=== PATIENT | male | born 1995 | race Caucasian/White ===

== ENCOUNTER 2022-01-11 16:15 | Inpatient (IN) | payer OTHER, SELFPAY ==
[2022-01-11 16:21] VITALS: BP 134/76; PULSE 90; RESP 20; TEMP 36.8; O2SAT 99; BMI 24.6
--- NOTE | 2022-01-11 16:46 | ED_ITS ---
HPI - General Adult General Chief complaint: Psychiatric Symptoms <DIANELYS Sales Last Filed: 01/11/22 17:49> Stated complaint: Crisis <DIANELYS Sales Last Filed: 01/11/22 17:49> Time Seen by Provider: 01/11/22 16:46 <DIANELYS Sales Last Filed: 01/11/22 17:49> Source: patient <DIANELYS Sales Last Filed: 01/11/22 17:49> Mode of arrival: ambulatory <DIANELYS Sales Last Filed: 01/11/22 17:49> Limitations: no limitations <DIANELYS Sales Last Filed: 01/11/22 17:49> History of Present Illness HPI narrative: Patient is a 26 year old male presenting to the emergency department today with thoughts of self harm and increased anxiety. Patient states that he just had a fight with a friend that is very important to him and that is amplifying his other life stresses. Patient states that he does not have plans to hurt himself but the thoughts cross his mind often. Patient denies any dizziness, lightheade dness, abdominal pain, nausea, vomiting, fever, chills, blurry vision, double vision, loss of vision, chest pain, difficulty breathing, shortness of breath, back pain, night sweats, pain with urination, increased urinary frequency, increased urinary urgency, blood in his urine or stool, syncope or a near syncopal episode, recent trauma or falls, bowel incontinence, bladder incontinence, bowel retention, bladder retention, or any other complaints at this time. <DIANELYS Sales Last Filed: 01/11/22 17:49> Onset (ago): day(s) <DIANELYS Sales Last Filed: 01/11/22 17:49> Severity: mild <DIANELYS Sales Last Filed: 01/11/22 17:49> Severity scale (1-10): 2 <DIANELYS Sales Last Filed: 01/11/22 17:49> Relieving factors: none <DIANELYS Sales Last Filed: 01/11/22 17:49> Exacerbating factors: none <DIANELYS Sales Last Filed: 01/11/22 17:49> Associated symptoms: denies other symptoms <DIANELYS Sales Last Filed: 01/11/22 17:49> Treatments prior to arrival: none <DIANELYS Sales Last Filed: 01/11/22 17:49> Related Data Home medications: Home Medications Medication Instructions Recorded Confirmed No Known Home Meds 01/11/22 01/11/22 <DIANELYS Sales Last Filed: 01/11/22 17:49> Allergies/adverse reactions: Allergies Allergy/AdvReac Type Severity Reaction Status Date / Time amoxicillin Allergy Unknown rash Verified 01/12/18 00:00 Motrin Allergy Unknown unsure Uncoded 01/12/18 00:00 <DIANELYS Sales Last Filed: 01/11/22 17:49> Review of Systems Constitutional: Constitutional: Reports no additional constitutional complaints, Denies chills, Denies fever(s) and Denies night sweats <DIANELYS Sales Last Filed: 01/11/22 17:49> Eyes: Eyes: Reports no additional eye complaints, Denies blurry vision, Denies change in vision, Denies diplopia, Denies eye discharge, Denies loss of vision and Denies eye pain <DIANELYS Sales Last Filed: 01/11/22 17:49> ENT: Denies dizziness <DIANELYS Sales Last Filed: 01/11/22 17:49> Cardiovascular: Cardiovascular: Reports no additional cardiovascular complaints, Denies chest pain, Denies lightheadedness, Denies Loss of Consciousness and Denies dyspnea <DIANELYS Sales Last Filed: 01/11/22 17:49> Respiratory: Respiratory: Reports no additional respiratory complaints and Denies dyspnea <DIANELYS Sales Last Filed: 01/11/22 17:49> Gastrointestinal: Gastrointestinal: Reports no additional gastrointestinal complaints, Denies abdominal pain, Denies melena, Denies hematochezia, Denies change in bowel habits and Denies change in stool character <DIANELYS Sales Last Filed: 01/11/22 17:49> Genitourinary: Genitourinary: Reports no additional male genitourinary complaints, Denies hematuria, Denies oliguria, Denies difficulty urinating, Denies dysuria, Denies urinary frequency, Denies urinary hesitancy, Denies urinary incontinence and Denies urinary urgency <DIANELYS Sales - Last Filed: 01/11/22 17:49> Musculoskeletal: Musculoskeletal: Reports no additional musculoskeletal complaints, Denies numbness and Denies tingling <DIANELYS Sales - Last Filed: 01/11/22 17:49> Neurologic: Denies dizziness, Denies loss of vision, Denies numbness and Denies tingling <DIANELYS Sales - Last Filed: 01/11/22 17:49> Psychiatric: Psychiatric: Reports no additional psychiatric complaints, Reports anxiety, Reports depression, Denies homicidal ideation and Denies suicidal ideation <DIANELYS Sales - Last Filed: 01/11/22 17:49> Endocrine: Endocrine: Reports no additional endocrine complaints <DIANELYS Sales - Last Filed: 01/11/22 17:49> Hematologic/Lymphatic: Hematologic/Lymphatic: Reports no additional hematologic/lymphatic complaints <DIANELYS Sales - Last Filed: 01/11/22 17:49> Allergic/Immunologic: Allergic/Immunologic: Reports no additional allergic/immunologic complaints <DIANELYS Sales - Last Filed: 01/11/22 17:49> [facility] Past Medical History Attestation statement: The following information was validated with the patient. <DIANELYS Sales - Last Filed: 01/11/22 17:49> Source: old records reviewed <DIANELYS Sales - Last Filed: 01/11/22 17:49> Social History Social History: Social History Advance Directives: No Advance Directives Information Provided: No Guardian: No <DIANELYS Sales - Last Filed: 01/11/22 17:49> Physical Exam ED Vital Signs: Vital Signs - 24 hr 01/11/22 16:21 01/12/22 04:13 01/12/22 08:08 Temperature 98.2 F 98.3 F 97.1 F Pulse Rate 90 87 66 Respiratory Rate 20 17 14 Blood Pressure 134/76 130/73 130/90 H Pulse Oximetry 99 99 100 BMI result Body Mass Index 24.6 <DIANELYS Sales - Last Filed: 01/11/22 17:49> Vital Signs - 24 hr 01/11/22 16:21 01/12/22 04:13 01/12/22 08:08 Temperature 98.2 F 98.3 F 97.1 F Pulse Rate 90 87 66 Respiratory Rate 20 17 14 Blood Pressure 134/76 130/73 130/90 H Pulse Oximetry 99 99 100 BMI result Body Mass Index 24.6 <DIANELYS Blair - Last Filed: 01/12/22 09:17> Const General: cooperative, no acute distress, alert and awake <DIANELYS Sales - Last Filed: 01/11/22 17:49> Nutritional Appearance: well nourished <DIANELYS Sales - Last Filed: 01/11/22 17:49> Orientation/consciousness: patient oriented x3 <DIANELYS Sales - Last Filed: 01/11/22 17:49> Limitations: no limitations <DIANELYS Sales - Last Filed: 01/11/22 17:49> HENMI Head: Yes normal to inspection and Yes atraumatic <DIANELYS Sales - Last Filed: 01/11/22 17:49> Ears: hearing grossly normal bilaterally and external ears normal <DIANELYS Sales - Last Filed: 01/11/22 17:49> General nose exam: Normal external nose present, no nasal discharge noted and no epistaxis <DIANELYS Sales - Last Filed: 01/11/22 17:49> Face and sinus: Yes normal facial exam, No abrasion and No laceration <DIANELYS Sales - Last Filed: 01/11/22 17:49> Mouth: Normal oral and palatal mucosa present, no drooling and no muffled voice <DIANELYS Sales - Last Filed: 01/11/22 17:49> Eyes General: appearance normal, both eyes and all related structures <DIANELYS Sales - Last Filed: 01/11/22 17:49> Periorbital: periorbital findings normal <DIANELYS Sales - Last Filed: 01/11/22 17:49> Eyelids: Yes eyelids normal <DIANELYS Sales - Last Filed: 01/11/22 17:49> Conjunctivae: conjunctivae normal <Sun Gonzales PA - Last Filed: 01/11/22 17:49> Pupils: Equal, round and reactive pupils present <Sun Gonzales PA - Last Filed: 01/11/22 17:49> EOM: EOMs intact bilaterally <Sun Gonzales PA - Last Filed: 01/11/22 17:49> Neck Neck: Yes normal visual inspection, Yes full ROM and Yes no lymphadenopathy <Sun Gonzales PA - Last Filed: 01/11/22 17:49> Chest Chest palpation & inspection: normal inspection of the chest <Sun Gonzales PA - Last Filed: 01/11/22 17:49> Resp Effort & Inspection: normal respiratory effort and able to speak in complete sentences <Sun Gonzales PA - Last Filed: 01/11/22 17:49> Auscultation: clear to auscultation bilaterally <Sun Gonzales PA - Last Filed: 01/11/22 17:49> Cardio Rate: regular rate <Sun Gonzales PA - Last Filed: 01/11/22 17:49> Rhythm: regular rhythm <Sun Gonzales PA - Last Filed: 01/11/22 17:49> GI Inspection: Yes normal to inspection <Sun Gonzales PA - Last Filed: 01/11/22 17:49> Neuro General: patient oriented x3 and moves all extremities <Sun Gonzales PA - Last Filed: 01/11/22 17:49> Cranial nerves: Yes Equal, round and reactive pupils present <Sun Gonzales PA - Last Filed: 01/11/22 17:49> Cognition (Neuro): normal cognition <Sun Gonzales PA - Last Filed: 01/11/22 17:49> Motor exam (neuro): 5/5 motor strength present throughout <Sun Gonzales PA - Last Filed: 01/11/22 17:49> Sensory Exam: Normal double simultaneous stimulation for sensation <Sun Gonzales PA - Last Filed: 01/11/22 17:49> Coordination: [id number] test normal <Sun Gonzales PA - Last Filed: 01/11/22 17:49> Extrem General: Yes normal to inspection, Yes full ROM and Yes capillary refill normal < DIANELYS Sales - Last Filed: 01/11/22 17:49> Psych Appearance: grossly normal <DIANELYS Sales - Last Filed: 01/11/22 17:49> Mental Status: mental status grossly normal <DIANELYS Sales - Last Filed: 01/11/22 17:49> Affect: Anxious affect present <DIANELYS Sales - Last Filed: 01/11/22 17:49> Attitude: cooperative <DIANELYS Sales - Last Filed: 01/11/22 17:49> Thought process: Normal thought process present <DIANELYS Sales Last Filed: 01/11/22 17:49> Thought content: Depressive thoughts present <DIANELYS Sales Last Filed: 01/11/22 17:49> Insight: Good insight present (Psych) <DIANELYS Sales - Last Filed: 01/11/22 17:49> Course Course Course Narrative: Addendum: 01/12/22 0916--physician observation continued. Vital signs stab le, no complaints overnight patient currently watching TV, respirations unlabored, remains Section 12 inpatient bed search <DIANELYS Blair - Last Filed: 01/12/22 09:17> Medical Decision Making MDM Narrative Medical decision making narrative: Patient is a 26 year old male presenting to the emergency department today with increased anxiety. Patient's physical exam was unremarkable. Patient's urine tox screen is pending. Patient is still awaiting crisis evaluation. <DIANELYS Sales - Last Filed: 01/11/22 17:49> Differential Diagnosis Differential Diagnosis: anxiety, depression, crisis <DIANELYS Sales - Last Filed: 01/11/22 17:49> Medical Records Medical records reviewed: Yes I reviewed the patient's medical records. <DIANELYS Sales Last Filed: 01/11/22 17:49> Lab Data Lab results reviewed: Yes I reviewed the patient's lab results. <DIANELYS Sales Last Filed: 01/11/22 17:49> Result diagrams: : 01/11/22 19:58 01/11/22 19:58 <DIANELYS Sales - Last Filed: 01/11/22 17:49> Labs: Lab Results 01/11/22 01/11/22 01/11/22 Range/Units 16:58 18:16 19:58 WBC 7.8 (4.8-10.8) X10*3/uL RBC 5.39 (4.60-5.80) X10*6/uL Hgb 15.1 (14.0-18.0) g/dl Hct 45.8 (42.0-52.0) % MCV 85.0 (80.0-98.0) fL MCH 28.0 (27.0-33.0) pg MCHC 33.0 (31.0-36.0) g/dl RDW 12.7 (11.0-16.0) % Plt Count 173 (160-400) X10*3/uL MPV 10.6 (9.4-12.4) fL Immature Gran % (Auto) 0.3 (0.0-0.4) % Neut % (Auto) 64.3 (45-73) % Lymph % (Auto) 28.0 (20-40) % [place] % (Auto) 5.5 (2-11) % Eos % (Auto) 1.5 (0-4) % Baso % (Auto) 0.4 (0-2) % Lymph # (Auto) 2.2 (1.2-4.9) X10*3/uL [place] # (Auto) 0.4 (0.1-1.2) X10*3/uL Eos # (Auto) 0.1 (0.0-0.4) X10*3/uL Baso # (Auto) 0.0 (0.0-0.2) X10*3/uL Abs Immat Gran (auto) 0.02 (0.00-0.03) X10*3/uL Absolute Neuts (auto) 5.0 (2.0-8.3) x10*3/uL Absolute Nucleated RBC 0.000 (0.0-0.012) X10*3/uL Nucleated RBC % (auto) 0.0 (0.0-0.2) /100WBC Sodium (135-145) mmol/L Potassium (3.3-5.1) mmol/L Chloride (96-108) mmol/L Carbon Dioxide (22-29) mmol/L Anion Gap (12-20) BUN (9-16) mg/dL Creatinine (0.5-1.4) mg/dL Estim Creat Clear Calc Estimated GFR Random Glucose (60-115) mg/dL Calcium (8.4-10.2) mg/dL Salicylates (15-30) mg/dL Urine Opiates Screen Not Detected (Not Detect) Urine Fentanyl Screen Not Detected (Not Detect) Acetaminophen (<30) mcg/mL Ur Barbiturates Screen Not Detected (Not Detect) Ur Phencyclidine Scrn Not Detected (Not Detect) Ur Amphetamines Screen Not Detected (Not Detect) U Benzodiazepines Scrn Not Detected (Not Detect) Urine Cocaine Screen Not Detected (Not Detect) U Marijuana (THC) Screen Not Detected (Not Detect) Ethyl Alcohol mg/dL COVID-19 ([facility]) Negative (Negative) COVID-19 Clin Com See Note 01/11/22 01/11/22 Range/Units 19:58 19:58 WBC (4.8-10.8) X10*3/uL RBC (4.60-5.80) X10*6/uL Hgb (14.0-18.0) g/dl Hct (42.0-52.0) % MCV (80.0-98.0) fL MCH (27.0-33.0) pg MCHC (31.0-36.0) g/dl RDW (11.0-16.0) % Plt Count (160-400) X10*3/uL MPV (9.4-12.4) fL Immature Gran % (Auto) (0.0-0.4) % Neut % (Auto) (45-73) % Lymph % (Auto) (20-40) % [place] % (Auto) (2-11) % Eos % (Auto) (0-4) % Baso % (Auto) (0-2) % Lymph # (Auto) (1.2-4.9) X10*3/uL [place] # (Auto) (0.1-1.2) X10*3/uL Eos # (Auto) (0.0-0.4) X10*3/uL Baso # (Auto) (0.0-0.2) X10*3/uL Abs Immat Gran (auto) (0.00-0.03) X10*3/uL Absolute Neuts (auto) (2.0-8.3) x10*3/uL Absolute Nucleated RBC (0.0-0.012) X10*3/uL Nucleated RBC % (auto) (0.0-0.2) /100WBC Sodium 139 (135-145) mmol/L Potassium 4.6 (3.3-5.1) mmol/L Chloride 106 (96-108) mmol/L Carbon Dioxide 26 (22-29) mmol/L Anion Gap 12 (12-20) BUN 14 (9-16) mg/dL Creatinine 1.11 (0.5-1.4) mg/dL Estim Creat Clear Calc 118.2 Estimated GFR > 60 Random Glucose 88 (60-115) mg/dL Calcium 9.6 (8.4-10.2) mg/dL Salicylates < 5.0 L (15-30) mg/dL Urine Opiates Screen (Not Detect) Urine Fentanyl Screen (Not Detect) Acetaminophen < 1 (<30) mcg/mL Ur Barbiturates Screen (Not Detect) Ur Phencyclidine Scrn (Not Detect) Ur Amphetamines Screen (Not Detect) U Benzodiazepines Scrn (Not Detect) Urine Cocaine Screen (Not Detect) U Marijuana (THC) Screen (Not Detect) Ethyl Alcohol < 10 mg/dL COVID-19 ([facility]) (Negative) COVID-19 Clin Com <DIANELYS Sales - Last Filed: 01/11/22 17:49> Lab Results 01/11/22 01/11/22 01/11/22 Range/Units 16:58 18:16 19:58 WBC 7.8 (4.8-10.8) X10*3/uL RBC 5.39 (4.60-5.80) X10*6/uL Hgb 15.1 (14.0-18.0) g/dl Hct 45.8 (42.0-52.0) % MCV 85.0 (80.0-98.0) fL MCH 28.0 (27.0-33.0) pg MCHC 33.0 (31.0-36.0) g/dl RDW 12.7 (11.0-16.0) % Plt Count 173 (160-400) X10*3/uL MPV 10.6 (9.4-12.4) fL Immature Gran % (Auto) 0.3 (0.0-0.4) % Neut % (Auto) 64.3 (45-73) % Lymph % (Auto) 28.0 (20-40) % [place] % (Auto) 5.5 (2-11) % Eos % (Auto) 1.5 (0-4) % Baso % (Auto) 0.4 (0-2) % Lymph # (Auto) 2.2 (1.2-4.9) X10*3/uL [place] # (Auto) 0.4 (0.1-1.2) X10*3/uL Eos # (Auto) 0.1 (0.0-0.4) X10*3/uL Baso # (Auto) 0.0 (0.0-0.2) X10*3/uL Abs Immat Gran (auto) 0.02 (0.00-0.03) X10*3/uL Absolute Neuts (auto) 5.0 (2.0-8.3) x10*3/uL Absolute Nucleated RBC 0.000 (0.0-0.012) X10*3/uL Nucleated RBC % (auto) 0.0 (0.0-0.2) /100WBC Sodium (135-145) mmol/L Potassium (3.3-5.1) mmol/L Chloride (96-108) mmol/L Carbon Dioxide (22-29) mmol/L Anion Gap (12-20) BUN (9-16) mg/dL Creatinine (0.5-1.4) mg/dL Estim Creat Clear Calc Estimated GFR Random Glucose (60-115) mg/dL Calcium (8.4-10.2) mg/dL Salicylates (15-30) mg/dL Urine Opiates Screen Not Detected (Not Detect) Urine Fentanyl Screen Not Detected (Not Detect) Acetaminophen (<30) mcg/mL Ur Barbiturates Screen Not Detected (Not Detect) Ur Phencyclidine Scrn Not Detected (Not Detect) Ur Amphetamines Screen Not Detected (Not Detect) U Benzodiazepines Scrn Not Detected (Not Detect) Urine Cocaine Screen Not Detected (Not Detect) U Marijuana (THC) Screen Not Detected (Not Detect) Ethyl Alcohol mg/dL COVID-19 ([facility]) Negative (Negative) COVID-19 Clin Com See Note 01/11/22 01/11/22 Range/Units 19:58 19:58 WBC (4.8-10.8) X10*3/uL RBC (4.60-5.80) X10*6/uL Hgb (14.0-18.0) g/dl Hct (42.0-52.0) % MCV (80.0-98.0) fL MCH (27.0-33.0) pg MCHC (31.0-36.0) g/dl RDW (11.0-16.0) % Plt Count (160-400) X10*3/uL MPV (9.4-12.4) fL Immature Gran % (Auto) (0.0-0.4) % Neut % (Auto) (45-73) % Lymph % (Auto) (20-40) % [place] % (Auto) (2-11) % Eos % (Auto) (0-4) % Baso % (Auto) (0-2) % Lymph # (Auto) (1.2-4.9) X10*3/uL [place] # (Auto) (0.1-1.2) X10*3/uL Eos # (Auto) (0.0-0.4) X10*3/uL Baso # (Auto) (0.0-0.2) X10*3/uL Abs Immat Gran (auto) (0.00-0.03) X10*3/uL Absolute Neuts (auto) (2.0-8.3) x10*3/uL Absolute Nucleated RBC (0.0-0.012) X10*3/uL Nucleated RBC % (auto) (0.0-0.2) /100WBC Sodium 139 (135-145) mmol/L Potassium 4.6 (3.3-5.1) mmol/L Chloride 106 (96-108) mmol/L Carbon Dioxide 26 (22-29) mmol/L Anion Gap 12 (12-20) BUN 14 (9-16) mg/dL Creatinine 1.11 (0.5-1.4) mg/dL Estim Creat Clear Calc 118.2 Estimated GFR > 60 Random Glucose 88 (60-115) mg/dL Calcium 9.6 (8.4-10.2) mg/dL Salicylates < 5.0 L (15-30) mg/dL Urine Opiates Screen (Not Detect) Urine Fentanyl Screen (Not Detect) Acetaminophen < 1 (<30) mcg/mL Ur Barbiturates Screen (Not Detect) Ur Phencyclidine Scrn (Not Detect) Ur Amphetamines Screen (Not Detect) U Benzodiazepines Scrn (Not Detect) Urine Cocaine Screen (Not Detect) U Marijuana (THC) Screen (Not Detect) Ethyl Alcohol < 10 mg/dL COVID-19 ([facility]) (Negative) COVID-19 Clin Com <DIANELYS Blair - Last Filed: 01/12/22 09:17> Discharge Plan Discharge Clinical Impression: Acute anxiety <DIANELYS Sales - Last Filed: 01/11/22 17:49> Patient Disposition: Still a Patient <DIANELYS Sales - Last Filed: 01/11/22 17:49> Prescriptions: No Action No Known Home Meds 0RF <DIANELYS Sales - Last Filed: 01/11/22 17:49> Print Language: [place] <DIANELYS Sales - Last Filed: 01/11/22 17:49>
[2022-01-11 17:19] LABS: COVID-19 Test Negative (Negative); IDNOW Serial# 9DB6401D
[2022-01-11 18:39] LABS: Amphetamine Screen Urine Not Detected (Not Detect); Barbiturates, Urine Not Detected (Not Detect); Benzodiazepines Screen Urine Not Detected (Not Detect); Cannabinoid Screen Urine Not Detected (Not Detect); Cocaine Screen Urine Not Detected (Not Detect); Fentanyl, urine Not Detected (Not Detect); Opiate Screen Urine Not Detected (Not Detect); Phencyclidine Screen Urine Not Detected (Not Detect)
[2022-01-11 20:04] LABS: MANUAL DIFF FLAG NO
[2022-01-11 20:16] LABS: Basophils Percent Auto 0.4 % (0-2); Eosinophils Absolute Auto 0.1 X10*3/uL (0.0-0.4); Eosinophils Percent Auto 1.5 % (0-4); Hematocrit 45.8 % (42.0-52.0); Hemoglobin 15.1 g/dl (14.0-18.0); Imm Gran Abs Auto 0.02 X10*3/uL (0.00-0.03); Imm Gran Pct Auto 0.3 % (0.0-0.4); Lymphocytes Absolute Auto 2.2 X10*3/uL (1.2-4.9); Mean Platelet Volume 10.6 fL (9.4-12.4); Monocytes Absolute Auto 0.4 X10*3/uL (0.1-1.2); Monocytes Percent Auto 5.5 % (2-11); Neutrophils Percent Auto 64.3 % (45-73); Platelet Count 173 X10*3/uL (160-400); Red Blood Count 5.39 X10*6/uL (4.60-5.80); Red Cell Distribution Width 12.7 % (11.0-16.0); White Blood Count 7.8 X10*3/uL (4.8-10.8)
[2022-01-11 20:18] LABS: Ethanol < 10 mg/dL
[2022-01-11 20:24] LABS: Anion Gap 12 (12-20); Blood Urea Nitrogen 14 mg/dL (9-16); Calcium 9.6 mg/dL (8.4-10.2); Carbon Dioxide 26 mmol/L (22-29); Chloride 106 mmol/L (96-108); Creatinine Clr Calc Pharmacy 118.2; Estimated Glomerular Filt Rate > 60; Glucose Random 88 mg/dL (60-115); Potassium 4.6 mmol/L (3.3-5.1); Salicylate < 5.0 mg/dL (15-30); Sodium 139 mmol/L (135-145)
[2022-01-11 20:45] LABS: Acetaminophen LAB < 1 mcg/mL (<30)
--- NOTE | 2022-01-12 | ECG_ITS ---
Test Reason : medical clearance Blood Pressure : / mmHG Vent. Rate : 055 BPM Atrial Rate : 055 BPM P-R Int : 126 ms QRS Dur : 096 ms QT Int : 406 ms P-R-T Axes : 056 087 068 degrees QTc Int : 388 ms Sinus bradycardia with sinus arrhythmia Otherwise normal ECG No previous ECGs available Referred By: Maine Johnson Electronically Signed By:MIGUEL ÁNGEL VELÁZQUEZ
[2022-01-12 04:13] VITALS: BP 130/73; PULSE 87; RESP 17; TEMP 36.8; O2SAT 99
--- NOTE | 2022-01-12 06:11 | PC.NURSE ---
Patient slept through the night, no distress observed/reported, remained in his room whole shift, behavior non concerning, patient was assessed by care team, well engaged, disposition per care team is section 12 inpatient bed search, VSS, patient is currently no on any medication, will continue to monitor.
--- NOTE | 2022-01-12 07:58 | PC.NURSE ---
patient appears to remain asleep at present respirations are even and unlabored patient appears in no distress
--- NOTE | 2022-01-12 07:59 | PC.NURSE ---
patient appears to remain asleep at present respirations are even and unlabored patient appears in no distress
[2022-01-12 08:08] VITALS: BP 130/90; PULSE 66; RESP 14; TEMP 36.2; O2SAT 100
[2022-01-12 16:25] VITALS: BP 128/86; PULSE 60; RESP 18; TEMP 36.7; O2SAT 100
--- NOTE | 2022-01-12 17:32 | HO.PSYADMNOT ---
HPI Date of Service: 01/12/22 Chief Complaint: SI Sources of Information: patient interviewed, chart reviewed and crisis/core team assessment reviewed HPI Subjective Notes: Kirby Warning, Conditional Voluntary and 3 Day Healthcare Proxy: No Guardianship: No Medical Problems Affecting Mental Status: No Narrative: Neymar is a 26 y.o. male who does not have a previous psych hx. He self-presented to [facility] on 01/11/22 due to increased anxiety and thoughts of self harm. I evaluated the pt this evening and upon interview he reports he is in the hospital because he had a ?fall out with a friend? and his ?mentality has gone through the roof.? He met her 8 months ago online and she stopped talking to him a month ago. Pt self presented to [facility] because he ?wanted to see if there's a chemical imbalance or something,? also reported thoughts of harming self. Says he has a leaky gut and wonders if ?the chemicals dont get back to your brain.? For background, pt reported that he had verbal arguments with a friend over ?weber stuff and says he annoyed her, culminating in her taking a ?break? from the friendship. Pt says he would like the to call this friend while he is inpatient and tell her he requests her to visit him. He says he purchased concert tickets for them in April and he would like her to tell him if she would ?maybe? go with him, feels he would then ?mellow out.? Per CARE team eval, this friend has filed a restraining order against him. Pt has some insight, as he says he is genuinely wanting to understand why he continues to get in the ?same argument patterns? and says something similar happened with another friend two years ago. Pt states ?everyone?s saying ?get over it,? but it was so good,? denies that the relationship was intimate but felt they were close and had something that was ?hard to find.? Says he is still trying to get in contact with her despite restraining order. Pt reports his sleep is poor, ?I never get that deep sleep.? Says his daytime energy is low, feels tired if he misses sleep. Endorses anxiety, perseverative/ ruminative thoughts. Onset of anxiety in high school. Feels depressed, has low motivation, anhedonia, not participating in hobbies, attributes this to feeling ?so focused on trying to fix this? [referring to friendship]. He is not currently employed, quit last job 2 weeks ago- of note he had applied for the job due to his friend also applying for a job there. 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 Denies sx of PTSD. Denies hx of panic attacks. Denies issues with anger or aggression. Denies A/VH. CARE team spoke with Pt's mom, Shazia, who stated pt has been depressed and ruminating on the recent end of his friendship. She reports that pt's friend got a restraining order against pt, but that it was lifted in court last Tuesday. Past Psychiatric History: -Pt denies previous psych history. -Denies hx of SIB or suicide attempts. 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 Quit his last job 2 weeks ago, ?it wasnt for me,? only there 2 weeks ago. Recently quit a job of several years. Wants to start his own lawn care business. Likes video animation. -Says he has friends, likes making connections with people. -Pt is an only child, his parents several years ago Substance History: -Cannabis: pt uses edibles, flower ?here and there,? utox negative Diagnostics Vital Signs (24Hr): Vital Signs - 24 hr 01/12/22 04:13 01/12/22 08:08 Temperature 98.3 F 97.1 F Pulse Rate 87 66 Respiratory Rate 17 14 Blood Pressure 130/73 130/90 H Pulse Oximetry 99 100 BMI result Body Mass Index 24.6 Labs Results: 01/11/22 19:58 01/11/22 19:58 Labs: Laboratory Results - last 48 hr 01/11/22 01/11/22 01/11/22 16:58 18:16 19:58 WBC 7.8 RBC 5.39 Hgb 15.1 Hct 45.8 MCV 85.0 MCH 28.0 MCHC 33.0 RDW 12.7 Plt Count 173 MPV 10.6 Immature Gran % (Auto) 0.3 Neut % (Auto) 64.3 Lymph % (Auto) 28.0 [place] % (Auto) 5.5 Eos % (Auto) 1.5 Baso % (Auto) 0.4 Lymph # (Auto) 2.2 [place] # (Auto) 0.4 Eos # (Auto) 0.1 Baso # (Auto) 0.0 Abs Immat Gran (auto) 0.02 Absolute Neuts (auto) 5.0 Absolute Nucleated RBC 0.000 Nucleated RBC % (auto) 0.0 Sodium Potassium Chloride Carbon Dioxide Anion Gap BUN Creatinine Estim Creat Clear Calc Estimated GFR Random Glucose Calcium Salicylates Urine Opiates Screen Not Detected Urine Fentanyl Screen Not Detected Acetaminophen Ur Barbiturates Screen Not Detected Ur Phencyclidine Scrn Not Detected Ur Amphetamines Screen Not Detected U Benzodiazepines Scrn Not Detected Urine Cocaine Screen Not Detected U Marijuana (THC) Screen Not Detected Ethyl Alcohol COVID-19 ([facility]) Negative COVID-19 [employer] See Note 01/11/22 01/11/22 19:58 19:58 WBC RBC Hgb Hct MCV MCH MCHC RDW Plt Count MPV Immature Gran % (Auto) Neut % (Auto) Lymph % (Auto) [place] % (Auto) Eos % (Auto) Baso % (Auto) Lymph # (Auto) [place] # (Auto) Eos # (Auto) Baso # (Auto) Abs Immat Gran (auto) Absolute Neuts (auto) Absolute Nucleated RBC Nucleated RBC % (auto) Sodium 139 Potassium 4.6 Chloride 106 Carbon Dioxide 26 Anion Gap 12 BUN 14 Creatinine 1.11 Estim Creat Clear Calc 118.2 Estimated GFR > 60 Random Glucose 88 Calcium 9.6 Salicylates < 5.0 L Urine Opiates Screen Urine Fentanyl Screen Acetaminophen < 1 Ur Barbiturates Screen Ur Phencyclidine Scrn Ur Amphetamines Screen U Benzodiazepines Scrn Urine Cocaine Screen U Marijuana (THC) Screen Ethyl Alcohol < 10 COVID-19 ([facility]) COVID-19 [employer] Meds/Allergies Meds Home Medications Medication Instructions Recorded Confirmed Type No Known Home Meds 01/11/22 01/11/22 History Allergies Allergies Allergy/AdvReac Type Severity Reaction Status Date / Time amoxicillin Allergy Unknown rash Verified 01/12/18 00:00 Motrin Allergy Unknown unsure Uncoded 01/12/18 00:00 Mental Status Exam Mental Status Exam Narrative: A&O. Well groomed, good hygiene, normal body habitus. Good eye contact, attentive. No Tics or Tremors. No abnormal involuntary movements. Calm, minimizing and evasive. Non-pressured speech, spontaneous with regular rate and rhythm, normal volume and prosody. No prolonged speech latency or dysarthria. Mood is ?anxious,? affect is somewhat anxious. Denies SI/SIB/HI upon inquiry. Denies A/VH. Pt's thoughts are ruminative, question of amorous delusional thought content. No known cognitive or memory impairment. Insight/ Judgment limited, pt not effectively able to problem solve, impulsive. Assessment & Plan Assessment & Plan (1) MIMI (generalized anxiety disorder): Status: Acute Code(s): F41.1 - Generalized anxiety disorder (2) Major depressive disorder, single episode, mild: Status: Acute Code(s): F32.0 - Major depressive disorder, single episode, mild Plan Neymar is a 26 y.o. male who does not have a previous psych hx. He self-presented to [facility] on 01/11/22 due to increased anxiety and thoughts of self harm. Pt reporting ruminative/ perseverative thoughts on a friend who stopped talking to him, continued to contact her despite restraining order. Reports poor sleep quality, avolition, anhedonia, and increased anxiety. Recently quit a job and tried to get a job with his friend, says they were supposed to move in together. Wants to see if he has a chemical imbalance so he can tell his friend and she may want to talk to him again. Plan: Pt is ambivalent about meds or OP therapy, as he says his primary goal for admission is to get evaluated for a chemical imbalance and have SW contact his friend to request that she visit him in the hospital. R/o delusional disorder, MDD with psychotic features, bipolar II DO. Denies hyposomnia. Q15 min safety checks, CV, 3 day notice Monitor response to medications. Monitor for safety in the milieu. Discharge on stabilization. Patient seen. Chart reviewed. Discussed with team. Obtain collateral contact info?as needed Patient educated on: medication risk/benefits and therapeutic strategies Reason for continued inpatient stay Substantial Risk for: harm to self, inability to function and med/psych decompensation
[2022-01-12 17:52] VITALS: BMI 23.8
[2022-01-12 18:00] VITALS: BP 108/65; PULSE 62; TEMP 36.9
--- NOTE | 2022-01-12 18:54 | PC.ADMIT ---
Patient is a 26 year ols male, admitted [place] [facility] [place] CV for recurrent intrusive thoughts and SI. Patient is admitted with a diagnosis of Bipolar and related disorder, this is his first hospitalization. Neymar reports that he recently lost a friendship of 8 months and is hoping that he hopes that he will be 'able to fix' the relationship. According to the CARE team evaluation, patient has been repeatedly texting this former friend who has since sought to get a restraining order against him. Patient reported to CARE team that he has intrusive thoughts to harm himself. He denies a specific plan, reports he is able to come to staff if he feels unsafe or at risk. Patient denies any medical history. He reports that his appetite is poor and that he has historically not slept well.
[2022-01-13 08:09] VITALS: BP 141/84; PULSE 56; RESP 15; TEMP 36.6; O2SAT 100
[2022-01-13 08:59] LABS: Estimated Average Glucose 103 mg/dL; Hemoglobin A1c % 5.2 %
[2022-01-13 09:10] LABS: Alanine Aminotransferase 12 U/L (0-40); Albumin Level 4.5 g/dL (3.5-5.0); Alkaline Phosphatase 37 U/L (39-117); Anion Gap 12 (12-20); Aspartate Amino Transferase 13 U/L (5-37); Bilirubin Total 1.6 mg/dL (0.0-1.0); Blood Urea Nitrogen 13 mg/dL (9-16); Calcium 10.1 mg/dL (8.4-10.2); Carbon Dioxide 30 mmol/L (22-29); Chloride 104 mmol/L (96-108); Cholesterol 160 mg/dL; Creatinine Clr Calc Pharmacy 113.1; Estimated Glomerular Filt Rate > 60; Glucose Fasting 94 mg/dL (60-99); HDL Cholesterol 45 mg/dL; LDL Cholesterol Calculated 104 mg/dl; Potassium 5.8 mmol/L (3.3-5.1); Sodium 140 mmol/L (135-145); Total Protein 7.2 g/dL (6.5-8.0); Triglycerides 58 mg/dL
--- NOTE | 2022-01-13 09:27 | HO.PSYCHPN ---
Subjective Subjective Date of Service: 01/13/22 Reason For Visit: SI Subjective Notes: Conditional Voluntary Interim History: Pt reports being intense and annoying in relationships at times. He talks about difficulty feeling emotional connection with others and he met someone with whom he felt emotional connected. Some difficulties reading social clues. He asks if behaviors such as being intense (by texting compulsively to friend) is due to chemical imbalance. He reports he wishes to explain his friend that his behaviors is due to mental illness. He denies SI/HI. We discussed therapy to further understand his pattern of relationships and ability to read social cues. No behavioral concerns. No psychosis. Medication Compliance: No Review of Systems Review of Systems CVS: No c/o chest pain, palpitations, no SOB REGISTRATION SCHEDULING SPECIALIST: No c/o dizziness, headache GI: No c/o Nausea, Vomiting, diarrhea, constipation or heartburn -Denies hx of seizures -Denies hx of TBI/ concussion -Denies hx of cardiac issues Constitutional: Reports no additional constitutional complaints, Denies chills, Denies fever(s) and Denies night sweats Eyes: Reports no additional eye complaints, Denies blurry vision, Denies change in vision, Denies diplopia, Denies eye discharge, Denies loss of vision and Denies eye pain Denies dizziness Cardiovascular: Reports no additional cardiovascular complaints, Denies chest pain, Denies lightheadedness, Denies Loss of Consciousness and Denies dyspnea Respiratory: Reports no additional respiratory complaints and Denies dyspnea Gastrointestinal: Reports no additional gastrointestinal complaints, Denies abdominal pain, Denies melena, Denies hematochezia, Denies change in bowel habits and Denies change in stool character Genitourinary: Reports no additional male genitourinary complaints, Denies hematuria, Denies oliguria, Denies difficulty urinating, Denies dysuria, Denies urinary frequency, Denies urinary hesitancy, Denies urinary incontinence and Denies urinary urgency Musculoskeletal: Reports no additional musculoskeletal complaints, Denies numbness and Denies tingling Denies dizziness, Denies loss of vision, Denies numbness and Denies tingling Psychiatric: Reports no additional psychiatric complaints, Reports anxiety, Reports depression, Denies homicidal ideation and Denies suicidal ideation Endocrine: Reports no additional endocrine complaints Hematologic/Lymphatic: Reports no additional hematologic/lymphatic complaints Allergic/Immunologic: Reports no additional allergic/immunologic complaints Mental Status Exam Mental Status Exam Narrative: A&O. Well groomed, good hygiene, normal body habitus. Good eye contact, attentive. No Tics or Tremors. No abnormal involuntary movements. Calm, minimizing and evasive. Non-pressured speech, spontaneous with regular rate and rhythm, normal volume and prosody. No prolonged speech latency or dysarthria. Mood is ?anxious,? affect is somewhat anxious. Denies SI/SIB/HI upon inquiry. Denies A/VH. Pt's thoughts are ruminative, question of amorous delusional thought content. No known cognitive or memory impairment. Insight/ Judgment limited, pt not effectively able to problem solve, impulsive. Diagnostics Vital Signs (24Hr): Vital Signs - 24 hr 01/13/22 20:00 01/14/22 08:28 Temperature 98.1 F 97.8 F Pulse Rate 68 58 Respiratory Rate 17 Blood Pressure 118/65 109/70 Pulse Oximetry 99 100 Oxygen Delivery Method Room Air Room Air BMI result Body Mass Index 24.2 Labs Results: 01/11/22 19:58 01/13/22 08:22 Labs: Laboratory Results - last 48 hr 01/13/22 01/13/22 01/13/22 08:22 08:22 08:22 Sodium 140 Potassium 5.8 H D Chloride 104 Carbon Dioxide 30 H Anion Gap 12 BUN 13 Creatinine 1.16 Estim Creat Clear Calc 113.1 Estimated GFR > 60 Fasting Glucose 94 Estimat Average Glucose 103 Hemoglobin A1c % 5.2 Calcium 10.1 Total Bilirubin 1.6 H AST 13 ALT 12 Alkaline Phosphatase 37 L Total Protein 7.2 Albumin 4.5 Triglycerides 58 Cholesterol 160 LDL Cholesterol, Calc 104 HDL Cholesterol 45 Vitamin B12 219 TSH 1.17 Medications Medications Current Medications Acetaminophen (Acetaminophen 325 Mg Tablet) 650 mg PO Q6H PRN PRN Reason: Headache/Pain Mild Scale (1-3) Al Hydroxide/Mg Hydroxide (Magnesium Hydrox/Alum Hydrox 30 Ml Oral.Susp) 30 ml PO Q6H PRN PRN Reason: Heartburn/Nausea Hydroxyzine HCl (Hydroxyzine Hcl 25 Mg Tablet) 25 mg PO Q6H PRN PRN Reason: Anxiety Magnesium Hydroxide (Milk Of Magnesia 30 Ml Oral.Susp) 30 ml PO DAILY PRN PRN Reason: Constipation Trazodone HCl (Trazodone Hcl 50 Mg Tablet) 50 mg PO BEDTIME PRN PRN Reason: Insomnia Allergies Allergies Allergy/AdvReac Type Severity Reaction Status Date / Time amoxicillin Allergy Unknown rash Verified 01/12/18 00:00 Motrin Allergy Unknown unsure Uncoded 01/12/18 00:00 Assessment & Plan Assessment & Plan (1) MIMI (generalized anxiety disorder): Status: Acute Code(s): F41.1 - Generalized anxiety disorder (2) Major depressive disorder, single episode, mild: Status: Acute Code(s): F32.0 - Major depressive disorder, single episode, mild Plan Neymar is a 26 y.o. male who does not have a previous psych hx. He self-presented [place] [facility] [place] due to increased anxiety and thoughts of self harm. Pt reporting ruminative/ perseverative thoughts on a friend who stopped talking to him, continued to contact her despite restraining order. Reports poor sleep quality, avolition, anhedonia, and increased anxiety. Recently quit a job and tried to get a job with his friend, says they were supposed to move in together. Wants to see if he has a chemical imbalance so he can tell his friend and she may want to talk to him again. Plan: Pt is ambivalent about meds or OP therapy, as he says his primary goal for admission is to get evaluated for a chemical imbalance and have SW contact his friend to request that she visit him in the hospital. R/o delusional disorder, MDD with psychotic features, bipolar II DO. Denies hyposomnia. Q15 min safety checks, CV, 3 day notice Monitor response to medications. Monitor for safety in the milieu. Discharge on stabilization. Patient seen. Chart reviewed. Discussed with team. Obtain collateral contact info?as needed 01/13- no SI/HI. no signs of psychosis, wonder if pt with difficulty reading social cues, possibly in ASD spectrum. I spent minutes with the patient and/or on the patient floor today, greater than?50% of which was spent counseling/coordinating care. Reason for contiued inpatient stay Substantial Risk for: stable for discharge
[2022-01-13 09:29] LABS: Thyroid Stimulating Hormone 1.17 uIU/mL (0.32-4.0)
[2022-01-13 09:32] LABS: Vitamin B12 219 pg/mL (200-900)
[2022-01-13 20:00] VITALS: BP 118/65; PULSE 68; TEMP 36.7; O2SAT 99
--- NOTE | 2022-01-14 02:25 | PC.NURSE ---
Psych provider notified of chart review with K+ noted to be 5.8 from 6/8 AM draw. no new orders obtained.
[2022-01-14 08:28] VITALS: BP 109/70; PULSE 58; RESP 17; TEMP 36.6; O2SAT 100; BMI 24.2
--- NOTE | 2022-01-14 09:45 | PM.PSYDC ---
DS: Providers Provider Date of Service: 01/14/22 Date of admission: 01/12/22 13:38 Primary care physician: Unknown Physician DS: Diagnosis Discharge Diagnosis (1) MIMI (generalized anxiety disorder): Status: Acute (2) Major depressive disorder, single episode, mild: Status: Acute DS: Medications Discharge Medications Home Medications: Home Medications Medication Instructions Recorded Confirmed No Known Home Meds 01/11/22 01/11/22 Mental Status Exam Mental Status Exam Narrative: A&O. Well groomed, good hygiene, normal body habitus. Good eye contact, attentive. No Tics or Tremors. No abnormal involuntary movements. Non-pressured speech, spontaneous with regular rate and rhythm, normal volume and prosody. No prolonged speech latency or dysarthria. Mood is ?better,? affect is congruent, brighter, non labile. Denies SI/SIB/HI upon inquiry. Denies A/VH. Pt's thoughts are ruminative, question of amorous delusional thought content. No known cognitive or memory impairment. Insight/ Judgment limited, pt not effectively able to problem solve, impulsive. DS: Summary Hospital Course Hospital Course: HPI: Neymar is a 26 y.o. male who does not have a previous psych hx. He self-presented to [facility] on 01/11/22 due to increased anxiety and thoughts of self harm. I evaluated the pt this evening and upon interview he reports he is in the hospital because he had a ?fall out with a friend? and his ?mentality has gone through the roof.? He met her 8 months ago online and she stopped talking to him a month ago. Pt self presented to [facility] because he ?wanted to see if there's a chemical imbalance or something,? also reported thoughts of harming self. Says he has a leaky gut and wonders if ?the chemicals dont get back to your brain.? For background, pt reported that he had verbal arguments with a friend over ?weber stuff and says he annoyed her, culminating in her taking a ?break? from the friendship. Pt says he would like the to call this friend while he is inpatient and tell her he requests her to visit him. He says he purchased [employer] tickets for them in April and he would like her to tell him if she would ?maybe? go with him, feels he would then ?mellow out.? Per CARE team eval, this friend has filed a restraining order against him. Pt has some insight, as he says he is genuinely wanting to understand why he continues to get in the ?same argument patterns? and says something similar happened with another friend two years ago. Pt states ?everyone?s saying ?get over it,? but it was so good,? denies that the relationship was intimate but felt they were close and had something that was ?hard to find.? Says he is still trying to get in contact with her despite restraining order. Pt reports his sleep is poor, ?I never get that deep sleep.? Says his daytime energy is low, feels tired if he misses sleep. Endorses anxiety, perseverative/ ruminative thoughts. Onset of anxiety in high school. Feels depressed, has low motivation, anhedonia, not participating in hobbies, attributes this to feeling ?so focused on trying to fix this? [referring to friendship]. He is not currently employed, quit last job 2 weeks ago- of note he had applied for the job due to his friend also applying for a job there. Now wants to start his own [employer] business. Denies sx of PTSD. Denies hx of panic attacks. Denies issues with anger or aggression. Denies A/VH. CARE team spoke with Pt's mom, Shazia, who stated pt has been depressed and ruminating on the recent end of his friendship. She reports that pt's friend got a restraining order against pt, but that it was lifted in court last Tuesday. Past Psychiatric History: -Pt denies previous psych history. -Denies hx of SIB or suicide attempts. Medical Evaluation Reviewed: Yes HOSPITAL COURSE On the unit, Mr. Pollock was admitted on a CV and placed on 15 minutes checks for safety. Pt reported that in general he has struggled throughout his life to feel emotional connections with others. Pt reported that he had met a woman online last April with whom he felt had many things in common and enjoy her company. Although he does report having some romantic feelings for the woman, he reports she was more like a friend. He reported that although they had met online on a dating site, he had not talked with the woman about expectation about the relationship. He reports that the woman at time mentioned that she hoped in the future to get and have kids, which pt reports he was surprise by this conversation as he did not know why the woman was telling him this. He reports calling her often to invite her to go out. He admits to insist sending several texts even when she had told him that she could not make it. He states he realizes now how his insisting on sending texts and calls would have been perceived as harassment. He denies feeling lonely or rejected when friend would tell him she is not able to go out with him that day but somewhat he states he thought it was just a matter of convincing her to go out. Pt reports they were never sexually involved and that he never even kissed her but he felt very close to her in a friendship and possibly romantic way- he seemed to have some difficulty identifying or labeling his own feelings/emotions. He states that he was devastated when she told him that she did not want to talk with him again. He thought that if he explains to her that he has a mental illness she would understand his behaviors and that he did not meant to make her feel uncomfortable. He has not history of psychosis. His intensity as to sending multiple texts and calls, seem to be related to his inability to read social cues. He appeared to misunderstand typical social interaction when dating. He appeared very concrete in his thinking with some difficulty in problem solving. He denied suicidal or homicidal ideation. He did report sadness about termination of the relationship with friend of past 7 months, but denied any plan or intent to hurt himself. We discussed risks, benefits and alternative treatment options, he declined starting an antidepressant but was open to be referred to outpatient psychiatric services. I recommend that with outpatient psychiatric services his diagnosis is clarify, which I suspect is more in realm of autistic spectrum disorder, rather than mood disorder or psychotic disorder. Collateral information gathered from his mother, who denied any safety concerns at time of discharge and agrees to have him back home. Status at Discharge Cognitive/behavioral status at discharge: Pt with bright, non labile affect. No SI/HI. No signs of psychosis or delusions. He was sleeping and eating well. No signs of aggression towards self or others. Future oriented looking forward to go back to work and see family. Functional status at discharge: independent ambulation Overall status at discharge: patient is progressing back to baseline Time Spent with Patient Time attestation: Total time spent providing and/or coordinating discharge services: Discharge Plan Discharge Patient Disposition: Home, Self-Care Discharge Diagnosis: MDD, single episode MIMI R/O ASD Referrals: Fannie Rogel (Therapy) [Other] - 01/20/22 3:00 pm (Telehealth Appointment -Please check your email shortly before your appointment time to obtain the zoom link. If you do not receive it, please call the number listed above.) [facility] [Physician] - 1 Week Discharge Medications: No Action No Known Home Meds Discharge Orders: Discharge Order (Routine); Ordered 01/14/22 Ordered By: Margarita Dejesus Diet: regular diet Activity on Discharge: As tolerated Stand Alone Forms: Patient Portal Discharge page, Community Support Print Language: Luxembourger Care Plan Goals: 1. Maintain mood 2. No SI/HI 3. No signs of aggression towards self or others. Health Concerns: Follow up with PCP Plan of Treatment: 1. take medications as prescribed 2. Go to nearest ED or call 911 in event of emergency Assessment: Pt with brighter, non labile affect. No SI/HI. No signs of psychosis. Difficulty with relationship unclear if this related to difficulty reading social cues, very concrete thinking, difficulty identifying own emotions. Discharge Date/Time: 01/14/22 14:14
[2022-01-14 11:11] LABS: Potassium 4.6 mmol/L (3.3-5.1)
== END 2022-01-14 14:14 | disposition home or self-care (01) | DRG 756 ==
LOC: HO.ED 01-12 16:31 → HO.PADLT16 01-12 16:35
PROVIDERS: Physician Assistant Medical; Admitting Provider Social Worker; Emergency Provider Internal Medicine; Visit Provider Social Worker
DX: F41.1 Generalized anxiety disorder (principal); R45.851 Suicidal ideations; F32.0 Major depressive disorder, single episode, mild; Z20.822 Contact with and (suspected) exposure to COVID-19; Z88.0 Allergy status to penicillin; Z88.6 Allergy status to analgesic agent
CPT/HCPCS: 36415; 80048; 80053; 80061; 80143; 80179; 80307; 82077; 82607; 83036; 84132; 84443; 85025; 87635; 93005; 99285

== ENCOUNTER 2022-03-13 00:37 | Emergency (ER) | payer OTHER, SELFPAY ==
--- NOTE | ~2022-03-13 | CT_ITS ---
EXAMINATION: CT ABDOMEN AND PELVIS WITHOUT CONTRAST CLINICAL INFORMATION: Right lower quadrant pain radiating to the testicle. COMPARISON: None TECHNIQUE: Multidetector volumetric imaging was performed from the superior aspect of the liver through the pubic symphysis. Sagittal and coronal reformatted images were obtained on the technologist's workstation. This CT examination was performed using dose optimization techniques as appropriate, variously including the following: *Automated exposure control *Adjustment of mA and/or kV according to patient size (this includes techniques or standardized protocols for targeted exams where dose is matched to indication/reason for exam; i.e. extremities or head) *Use of iterative reconstruction technique DLP: 588 mGy-cm FINDINGS: LUNG BASES: The visualized lung bases are unremarkable. LIVER, GALLBLADDER, AND BILIARY TREE: The liver is normal in size, shape, and attenuation. No focal hepatic lesion or biliary ductal dilatation is present. The gallbladder is unremarkable with no evidence of radiopaque gallstones, gallbladder wall thickening, or obvious pericholecystic inflammatory changes. PANCREAS: Unremarkable. SPLEEN: Unremarkable. ADRENAL GLANDS: Unremarkable. KIDNEYS AND URETERS: There is a 4 mm calculus in the proximal right ureter at the ureteropelvic junction associated mild upstream hydronephrosis, and trace periureteral fat stranding.. The kidneys are normal in size, shape, and attenuation. BLADDER: Unremarkable. GASTROINTESTINAL TRACT: The small and large bowel are unremarkable. The appendix is unremarkable. ABDOMINAL WALL: No significant hernia is appreciated. LYMPH NODES: Normal. VASCULAR: Unremarkable. PELVIC VISCERA: Unremarkable. OSSEOUS STRUCTURES: Unremarkable. CT/CT abdomen pelvis wo con IMPRESSION: There is a 4 mm calculus located within the RIGHT ureteropelvic junction associated mild kyphosis.
[2022-03-13 00:53] VITALS: BP 125/71; PULSE 79; RESP 16; TEMP 36.8; O2SAT 100; BMI 25.3
[2022-03-13 01:06] VITALS: BP 130/83; PULSE 80; RESP 24; TEMP 37.1; O2SAT 100
--- NOTE | 2022-03-13 01:08 | ED.ABDPAIN ---
HPI - Abdominal Pain General Chief Complaint: Abdominal Pain Stated Complaint: stomach pain Time Seen by Provider: 03/13/22 00:55 Source: patient Mode of arrival: ambulatory Limitations: no limitations History of Present Illness HPI narrative: Patient comes to the emergency room complaining of right lower quadrant pain radiating towards the right testicle. Pain started suddenly approximately 5 hours ago, patient is constant. Patient denies hematuria or dysuria. Denies penile discharge, no nausea or vomiting, no URI or UTI symptoms Related Data Previous Rx's Medication Instructions Recorded ketorolac 10 mg tablet 10 mg PO TID PRN pain #10 tabs 03/13/22 ondansetron HCl 4 mg tablet 4 mg PO Q6H PRN nausea and 03/13/22 vomiting #10 tabs tamsulosin 0.4 mg capsule 0.4 mg PO DAILY #10 caps 03/13/22 Allergies Allergy/AdvReac Type Severity Reaction Status Date / Time amoxicillin Allergy Unknown rash Verified 01/12/18 00:00 Motrin Allergy Unknown unsure Uncoded 01/12/18 00:00 Review of Systems Review of Systems Constitutional : No Weight loss, No Fever, No Chills, No Night Sweats, No Fatigue, No Malaise ENT/Mouth : No Hearing loss, No Ear Pain, No Nasal Congestion, No Sinus Pain, No Hoarseness, No sore throat, No Rhinorrhea, No Swallowing Difficulty Eyes: No Eye Pain, No Swelling, No Redness, No Foreign Body, No Discharge, No Vision Changes Cardiovascular : No Chest Pain, No SOB, No Dyspnea on Exertion, No Orthopnea, No Edema, No Palpitations Respiratory : No Cough, No Sputum, No Wheezing, No Smoke Exposure, No Dyspnea Gastrointestinal : No Nausea, No Vomiting, No Diarrhea, No Constipation, spotting of right lower quadrant pain radiating towards the right testicle, No Hematochezia, No Melena Genitourinary : no irregular bleeding, No Dysuria, No Urinary Frequency, No Hematuria, No Urinary Incontinence, No Urgency, No Flank Pain, No Urinary Flow Changes, No Hesitancy Musculoskeletal : No joint pain, No Myalgias, No Joint Swelling Skin : No Skin Lesions, No rash Neuro : No Weakness, No Numbness, No Paresthesias, No Loss of Consciousness, No Dizziness, No Headache Psych : No Anxiety/Panic, No Depression, No SI/HI/AH/VH, No Social Issues, Heme/Lymph: No Bruising, No Bleeding,No Lymphadenopathy Endocrine : No Polyuria, No Polydipsia, No Temperature Intolerance [facility] Social History Social History Alcohol intake: current Alcohol intake frequency: holidays/special occasions only Patient Tobacco Use Status: Never used Tobacco Use of substances other than those prescribed or required for medical reasons: Yes Substance Use Type: Marijuana Substance Use Frequency: Occasionally Substance Use Frequency Other:: Appx. once per month Advance Directives: No service: No Sexual orientation: Don't Know Physical Exam ED Vital Signs: Vital Signs - 24 hr 03/13/22 00:53 03/13/22 01:06 Temperature 98.2 F 98.7 F Pulse Rate 79 80 Respiratory Rate 16 24 H Blood Pressure 125/71 130/83 Pulse Oximetry 100 100 Oxygen Delivery Method Room Air Room Air BMI result Body Mass Index 25.3 Const Other: Appearance: Alert. Oriented X3. No acute distress. Eyes: Pupils equal, round and reactive to light. ENT: Pharynx normal. Neck: Normal inspection. Neck supple. No lymph nodes noted. No crepitus CVS: Normal heart rate and rhythm. Pulses normal. Normal S1 and S2 Respiratory: No respiratory distress. Breath sounds normal. No Wheezing. No rales Abdomen: Soft and nontender. No rigidity. No distention. , no CVA tenderness : Mild discomfort to palpation in the right testicle Skin: Skin warm and dry. Normal skin color. Normal skin turgor. Extremities: No lower extremity edema. No Lacerations. No Rash Neuro: Oriented X 3. No motor deficit. No sensory deficit. Moving all extremities. No slurred speech. CN 2 through 12 grossly intact Psych: calm, cooperative, normal affect Course Course Course Narrative: Urinalysis labs pending. Patient giving IV fluids and ketorolac. I discussed with the patient that he has a right-sided kidney stone in the UPJ. Patient instructed to follow-up with Urology MDM - Abdominal Pain Lab Data Result diagrams: 03/13/22 01:14 03/13/22 01:14 Labs: Lab Results 03/13/22 03/13/22 Range/Units 01:14 01:14 WBC 12.2 H (4.8-10.8) X10*3/uL RBC 5.95 H (4.60-5.80) X10*6/uL Hgb 16.8 (14.0-18.0) g/dl Hct 48.7 (42.0-52.0) % MCV 81.8 (80.0-98.0) fL MCH 28.2 (27.0-33.0) pg MCHC 34.5 (31.0-36.0) g/dl RDW 12.3 (11.0-16.0) % Plt Count 190 (160-400) X10*3/uL MPV 10.4 (9.4-12.4) fL Immature Gran % (Auto) 0.2 (0.0-0.4) % Neut % (Auto) 85.4 H (45-73) % Lymph % (Auto) 10.0 L (20-40) % [place] % (Auto) 3.7 (2-11) % Eos % (Auto) 0.4 (0-4) % Baso % (Auto) 0.3 (0-2) % Lymph # (Auto) 1.2 (1.2-4.9) X10*3/uL [place] # (Auto) 0.5 (0.1-1.2) X10*3/uL Eos # (Auto) 0.1 (0.0-0.4) X10*3/uL Baso # (Auto) 0.0 (0.0-0.2) X10*3/uL Abs Immat Gran (auto) 0.03 (0.00-0.03) X10*3/uL Absolute Neuts (auto) 10.4 H (2.0-8.3) x10*3/uL Absolute Nucleated RBC 0.000 (0.0-0.012) X10*3/uL Nucleated RBC % (auto) 0.0 (0.0-0.2) /100WBC Sodium 141 (135-145) mmol/L Potassium 3.7 (3.3-5.1) mmol/L Chloride 104 (96-108) mmol/L Carbon Dioxide 19 L (22-29) mmol/L Anion Gap 22 H (12-20) BUN 13 (9-16) mg/dL Creatinine 1.49 H (0.5-1.4) mg/dL Estim Creat Clear Calc 85.6 Estimated GFR 57 Random Glucose 169 H D (60-115) mg/dL Calcium 9.8 (8.4-10.2) mg/dL Total Bilirubin 1.2 H (0.0-1.0) mg/dL Direct Bilirubin 0.4 (0.0-0.5) mg/dL AST 16 (5-37) U/L ALT 11 (0-40) U/L Alkaline Phosphatase 43 (39-117) U/L Total Protein 7.9 (6.5-8.0) g/dL Albumin 4.8 (3.5-5.0) g/dL Lipase 14 (8-78) U/L Imaging Data CT scan - abdomen: Radiologist's impression: FINDINGS: LUNG BASES: The visualized lung bases are unremarkable.? LIVER, GALLBLADDER, AND BILIARY TREE: The liver is normal in size, shape, and attenuation. No focal hepatic lesion or biliary ductal dilatation is present. The gallbladder is unremarkable with no evidence of radiopaque gallstones, gallbladder wall thickening, or obvious pericholecystic inflammatory changes.? PANCREAS: Unremarkable.? SPLEEN: Unremarkable.? ADRENAL GLANDS: Unremarkable.? KIDNEYS AND URETERS: There is a 4 mm calculus in the proximal right ureter at the ureteropelvic junction associated mild upstream hydronephrosis, and trace periureteral fat stranding.. The kidneys are normal in size, shape, and attenuation. BLADDER: Unremarkable.? GASTROINTESTINAL TRACT: The small and large bowel are unremarkable. The appendix is unremarkable.? ABDOMINAL WALL: No significant hernia is appreciated.? LYMPH NODES: Normal. VASCULAR: Unremarkable. PELVIC VISCERA: Unremarkable.? OSSEOUS STRUCTURES: Unremarkable.? CT/CT abdomen pelvis wo con IMPRESSION: There is a 4 mm calculus located within the RIGHT ureteropelvic junction associated mild kyphosis. Discharge Plan Discharge Clinical Impression: Kidney stone on right side Patient Disposition: Home, Self-Care Instructions: Kidney Stones (ED) Additional Instructions: Please follow-up with your primary care physician tomorrow. If you have any worsening or new symptoms, please return to the emergency room or call 911 Prescriptions: New ketorolac 10 mg tablet 10 mg PO TID PRN (Reason: pain) Qty: 10 0RF tamsulosin 0.4 mg capsule 0.4 mg PO DAILY Qty: 10 0RF ondansetron HCl 4 mg tablet 4 mg PO Q6H PRN (Reason: nausea and vomiting) Qty: 10 0RF Referrals: Gilson Gtz MD [Physician] - 2 days
[2022-03-13] MEDS: 0.9 % Sodium Chloride 1,000 ML 999 ML IVCONT (01:14)
[2022-03-13 01:18] LABS: MANUAL DIFF FLAG NO
[2022-03-13] MEDS: Ketorolac Tromethamine 30 MG/ML VIAL IVPUSH (01:18)
[2022-03-13 01:19] LABS: Basophils Percent Auto 0.3 % (0-2); Eosinophils Absolute Auto 0.1 X10*3/uL (0.0-0.4); Eosinophils Percent Auto 0.4 % (0-4); Hematocrit 48.7 % (42.0-52.0); Hemoglobin 16.8 g/dl (14.0-18.0); Imm Gran Abs Auto 0.03 X10*3/uL (0.00-0.03); Imm Gran Pct Auto 0.2 % (0.0-0.4); Lymphocytes Absolute Auto 1.2 X10*3/uL (1.2-4.9); Mean Corpuscular HGB Conc 34.5 g/dl (31.0-36.0); Mean Corpuscular Hemoglobin 28.2 pg (27.0-33.0); Mean Corpuscular Volume 81.8 fL (80.0-98.0); Mean Platelet Volume 10.4 fL (9.4-12.4); Monocytes Absolute Auto 0.5 X10*3/uL (0.1-1.2); Monocytes Percent Auto 3.7 % (2-11); Neutrophils Absolute Auto 10.4 x10*3/uL (2.0-8.3); Neutrophils Percent Auto 85.4 % (45-73); Platelet Count 190 X10*3/uL (160-400); Red Blood Count 5.95 X10*6/uL (4.60-5.80); Red Cell Distribution Width 12.3 % (11.0-16.0); White Blood Count 12.2 X10*3/uL (4.8-10.8)
[2022-03-13 01:46] LABS: Alanine Aminotransferase 11 U/L (0-40); Albumin Level 4.8 g/dL (3.5-5.0); Alkaline Phosphatase 43 U/L (39-117); Anion Gap 22 (12-20); Aspartate Amino Transferase 16 U/L (5-37); Bilirubin Direct 0.4 mg/dL (0.0-0.5); Bilirubin Total 1.2 mg/dL (0.0-1.0); Blood Urea Nitrogen 13 mg/dL (9-16); Calcium 9.8 mg/dL (8.4-10.2); Carbon Dioxide 19 mmol/L (22-29); Chloride 104 mmol/L (96-108); Creatinine Clr Calc Pharmacy 85.6; Estimated Glomerular Filt Rate 57; Glucose Random 169 mg/dL (60-115); Lipase 14 U/L (8-78); Potassium 3.7 mmol/L (3.3-5.1); Sodium 141 mmol/L (135-145); Total Protein 7.9 g/dL (6.5-8.0)
--- NOTE | 2022-03-13 01:46 | PC.NURSE ---
This RN administered 30mg IV Toradol to pt. for 05/17 abdominal/testicle/back pain. Appx. 15 minutes after administration, without prompting, pt. commented to this RN that pain is a lot better since receiving pain med. Pt. then told ADRI Alex immediately after that interaction that he would like stronger pain medications
[2022-03-13] MEDS: Morphine Sulfate 4 MG/ML CARTRIDGE IVPUSH (05:10)
[2022-03-13 05:18] VITALS: BP 118/69; PULSE 58; RESP 16; TEMP 36.7; O2SAT 97
--- NOTE | 2022-03-13 05:22 | PC.NURSE ---
Administered meds to pt per MAR.
--- NOTE | 2022-03-13 05:24 | PC.NURSE ---
Pt is alert and oriented and is able to ambulate without assistance. Discharge instructions were given and explained to pt.
== END 2022-03-13 05:25 | disposition home or self-care (01) ==
PROVIDERS: Emergency Provider Emergency Medicine
DX: N13.2 Hydronephrosis with renal and ureteral calculous obstruction (principal)
CPT/HCPCS: 36415; 74176; 80048; 80076; 83690; 85025; 96374; 96375; 99284; 99285; J1885; J2270

== ENCOUNTER 2022-09-22 09:55 | Outpatient (REF) | payer OTHER, SELFPAY ==
--- NOTE | ~2022-09-22 | US_ITS ---
EXAMINATION: US RETROPERITONEAL LIMITED (RENAL ONLY) CLINICAL INFORMATION: Calculus of kidney. COMPARISON: CT abdomen and pelvis 03/13/2022. TECHNIQUE: Real-time imaging of the kidneys. FINDINGS: RIGHT KIDNEY: 11.2 x 6.9 x 6.7 cm (SAG x AP x TRV). The kidney is normal in size, contour, and echogenicity. Renal cortical thickness is normal. No calculi or focal parenchymal lesions. No hydronephrosis. Mild fullness of the right renal collecting system. LEFT KIDNEY: 11.1 x 6.2 x 5.0 cm (SAG x AP x TRV). The kidney is normal in size, contour, and echogenicity. Renal cortical thickness is normal. No calculi or focal parenchymal lesions. No hydronephrosis. US/US renal BI IMPRESSION: Mild fullness of the right renal collecting system similar to the prior CT scan.
== END 2022-09-22 09:56 | disposition home or self-care (01) ==
LOC: HO.HMGCX 09:55
PROVIDERS: Visit Provider Urology
DX: N20.0 Calculus of kidney (principal)
CPT/HCPCS: 76775